=== PATIENT | male | born 1990 | race Caucasian/White ===

== ENCOUNTER 2019-11-20 15:51 | Emergency (ER) | payer OTHER ==
[2019-11-20] MEDS ORDERED: HYDROCODONE/ACETAMINOPHEN 5-325 MG TABLET PO ONE ×2 (17:02→21:53)
--- NOTE | 2019-11-20 17:07 | ER Document Report ---
ED Medical Screen (RME) - General Chief Complaint: Neck Problem Stated Complaint: NECK PAIN,LEFT ARM PAIN Time Seen by Provider: 11/20/19 16:54 Mode of Arrival: Wheelchair Information source: Patient Notes: HPI; 29-year-old male presents to the emergency room complaining of feeling a "pop" to his neck earlier this morning. Patient initially injured his neck between C3 and C4 and has nerve root damage in 2017 while in the [employer]. [facility] and has a MRI, MRA and a CT scheduled for the . Patient states he is taking Lyrica which has been helping with his pain on Tuesday he started chopping wood with his right arm woke up on Tuesday with right arm numbness and today after hearing the "pop" to his neck he is now having left-sided numbness and tingling. PE: Alert and oriented x3. Mild distress noted. Lungs: Clear to auscultation without rales, rhonchi, wheezing. Heart: Regular rate rhythm without murmurs, rubs, gallops. There is tenderness on palpation to the cervical spine between C3 and C4. Painful range of motion with lateral movement to the neck. Director [employer] strength is equal and adequate bilaterally. Full sensation to light painful stimuli noted to the bilateral upper extremities. He is neurovascularly intact. I have greeted and performed a rapid initial assessment of this patient. A comprehensive ED assessment and evaluation of the patient, analysis of test results and completion of the medical decision making process will be conducted by additional ED providers. I have specifically instructed the patient or family members with the patient to immediately return to any nursing staff should anything change in the patient's condition or with their chief complaint. TRAVEL OUTSIDE OF THE [place] IN LAST 30 DAYS: No - Related Data Allergies/Adverse Reactions: No Known Allergies Allergy (Unverified 11/20/19 16:52) Past Medical History - Social History Chew tobacco use (# tins/day): No Frequency of alcohol use: None Drug Abuse: None Physical Exam - Vital signs Vitals: Temp Pulse Resp BP Pulse Ox 98.4 F 88 16 124/76 96 11/20/19 16:28 11/20/19 16:28 11/20/19 16:28 11/20/19 16:28 11/20/19 16:28 Course - Vital Signs Vital signs: Temp Pulse Resp BP Pulse Ox 98.4 F 88 16 124/76 96 11/20/19 16:28 11/20/19 16:28 11/20/19 16:28 11/20/19 16:28 11/20/19 16:28
[2019-11-20] MEDS ORDERED: AMMONIA INHALANTS 10 AMPUL/BOX IH ONE ×2 (17:45→17:48)
--- NOTE | 2019-11-20 19:07 | RADIOLOGY REPORT (SQ) ---
EXAM DESCRIPTION: MRI CERVICAL SPINE COMBO IMAGES COMPLETED DATE/TIME: 11/20/2019 5:38 pm REASON FOR STUDY: Paresthesia. Right arm pain normally from old injury, left arm pain and tingling today. Previous injury in 2017. Chronic pain worsening today. Decreased range of motion, locking, numbness, popping, radiating pain, stiffness, tingling. COMPARISON: None. TECHNIQUE: Sagittal and Axial imaging includes T1, T2, STIR and gradient echo sequences. T1 post karlo olinium sequences. CONTRAST TYPE AND DOSE: 20 mL ProHance RENAL FUNCTION: Not indicated. ACR Type II contrast agent associated with few, if any, unconfounded cases of NSF LIMITATIONS: None. FINDINGS: ALIGNMENT: Normal. VERTEBRAE: Intact. BONE MARROW: Normal. No marrow replacement or reactive changes. DISCS: There is mild degenerative disc disease with loss of intervertebral disc height and signal at several levels. HARDWARE: None in the spine. CORD AND BASE OF BRAIN: Normal in size and signal intensity. SOFT TISSUES: No soft tissue masses. C1-C2: No significant spinal stenosis. C2-C3: No significant spinal stenosis or exit foraminal stenosis. C3-C4: No significant spinal stenosis or exit foraminal stenosis. C4-C5: No significant spinal stenosis or exit foraminal stenosis. C5-C6: There is an asymmetric right disc bulge extending to the right neural foramen. No significan t spinal canal stenosis. Mild right neural foraminal stenosis. C6-C7: Broad-based small asymmetric left-sided disc bulge with mild flattening of the ventral thecal sac. No cord compression. Disc material extends to the left neural foramen with mild left neural fo raminal stenosis. C7-T1: No significant spinal stenosis or exit foraminal stenosis. UPPER THORACIC: Incompletely imaged. No significant spinal stenosis or exit foraminal stenosis. ENHANCEMENT: No abnormal enhancement. OTHER: No other significant finding. IMPRESSION: 1. Asymmetric small left-sided disc bulge at C6-C7 with mild flattening of the ventral thecal sac at this level and mild left neural foraminal stenosis secondary to disc material. No cord compression o r abnormal cord signal. 2. Tiny asymmetric right disc bulge extending toward the right neural foramen at C5-C6. COMMENT: None. TECHNICAL DOCUMENTATION: JOB ID: [id number] [employer]- All Rights Reserved Reading location - IP/workstation name: [email or web address]
[2019-11-20] MEDS ORDERED: HYDROCODONE/ACETAMINOPHEN 5-325 MG (6 TAB/ER DISP) PO PRN (23:38)
[2019-11-20] MEDS ORDERED: DEXAMETHASONE SOD PHOS INJ 10 MG/1 ML VIAL IV ONE (23:38)
--- NOTE | 2019-11-20 23:46 | ER Document Report ---
HPI - HPI Patient complains to provider of: neck pain Time Seen by Provider: 11/20/19 16:54 Pain Level: 3 Context: 29-year-old male with a previous history of neck injury in 2017 diagnosed with herniated disc and nerve root damage presents to the emergency room with worsening pain and left arm tingling that started today. Patient states he does have an MRI, MRA and a CT scheduled for 29 November through the [place] states he was feeling well over the weekend so he started chopping wood on Tuesday woke up Tuesday with right arm numbness today who heard a "pop" to his neck and then developed left arm tingling. States he is taking Lyrica which is not helping with the pain. He denies any general weakness. Able to lift his arms without difficulty he states "they just feel tingly. Associated Symptoms: None Exacerbated by: Movement Relieved by: Remaining still Similar symptoms previously: Yes - History of chronic neck pain secondary to herniated disc Recently seen / treated by doctor: No - ROS Systems Reviewed and Negative: Yes All other systems reviewed and negative - NEURO Neurology: DENIES: Weakness - CARDIOVASCULAR Cardiovascular: DENIES: Chest pain - RESPIRATORY Respiratory: DENIES: Trouble Breathing - REPRODUCTIVE Reproductive: DENIES: : - MUSCULOSKELETAL Musculoskeletal: REPORTS: Extremity pain - DERM Skin Color: Normal Skin Problems: None Past Medical History - General Information source: Patient - Social History Smoking Status: Never Smoker Chew tobacco use (# tins/day): No Frequency of alcohol use: None Drug Abuse: None Family History: Reviewed & Not Pertinent Patient has homicidal ideation: No Vertical Provider Document - CONSTITUTIONAL Agree With Documented VS: Yes Exam Limitations: No Limitations General Appearance: Moderate Distress - INFECTION CONTROL TRAVEL OUTSIDE OF THE [place] IN LAST 30 DAYS: No - HEENT HEENT: Atraumatic, Normal ENT Exam, Normocephalic - NECK Neck: Supple, Thyroid Normal, Other - Tenderness on palpation from C3-C4, painful range of motion with lateral movement of the neck. No obvious deformity noted no step-offs. - RESPIRATORY Respiratory: Breath Sounds Normal, No Respiratory Distress - CARDIOVASCULAR Cardiovascular: Regular Rate, Regular Rhythm, No Murmur - BACK Back: Normal Inspection - MUSCULOSKELETAL/EXTREMETIES Musculoskeletal/Extremeties: FROM, Non-Tender - NEURO Level of Consciousness: Awake, Alert, Appropriate Motor/Sensory: No Motor Deficit, No Sensory Deficit Notes: [employer] Supervisor strength is equal and adequate bilaterally. Positive bilateral radial pulses. Neurovascularly intact. - DERM Integumentary: Warm, Dry Course - Re-evaluation Re-evalutation: 11/20/19 23:41 Patient is resting comfortably with decreased pain. He is neurovascularly intact. Reviewed MRI with patient. Case was staffed and MRI was reviewed with attending ED physician Dr. Chiu who states patient may be discharge home after getting IV Decadron and discharged home on p.o. prednisone. Patient did request pain medication. He will be given 6 Woodruff to go. [facility]. Patient was given strict return to the emergency room guidelines. Return for any new or worsening symptoms. All questions were answered. Patient verbalized understanding and agrees with plan of care. 11/20/19 23:52 - Vital Signs Vital signs: Temp Pulse Resp BP Pulse Ox 98.2 F 65 18 125/83 98 11/20/19 21:44 11/20/19 21:44 11/20/19 21:44 11/20/19 21:44 11/20/19 21:44 - Diagnostic Test Radiology reviewed: Reports reviewed Discharge - Discharge Clinical Impression: Herniated disc, cervical Condition: Stable Disposition: HOME, SELF-CARE Instructions: Herniated Disc ([facility]), Radiculopathy ([facility]) Additional Instructions: Take steroids and Woodruff as prescribed. [facility]. Return to the emergency room for any new or worsening symptoms. Prescriptions: Prednisone [Deltasone 20 mg Tablet] See Protocol PO DAILY 9 Days #18 tablet
[2019-11-21 00:22] VITALS: BP 124/72
== END 2019-11-21 00:21 | disposition home or self-care (01) ==
LOC: ER 15:51
DX: M50.20 Other cervical disc displacement, unspecified cervical region (principal); M50.822 Other cervical disc disorders at C5-C6 level; R20.2 Paresthesia of skin
CPT/HCPCS: 99285; 96374; 72156; A9576; J3490; J1100